=== PATIENT | female | born 1945 | race Caucasian/White ===

== ENCOUNTER 2016-07-10 16:06 | Outpatient (CLI) | payer OTHER, MEDICARE ==
[2016-07-10 16:33] LABS: eGFR (African) > 60; eGFR (Non-African) > 60
== END 2016-07-10 16:07 ==
LOC: LABRHC 16:06
PROVIDERS: ATTEND Family Medicine
DX: M15.9 Polyosteoarthritis, unspecified (principal); I10 Essential (primary) hypertension
CPT/HCPCS: 80053

== ENCOUNTER 2017-10-02 10:07 | Outpatient (CLI) | payer OTHER, MEDICARE ==
[2017-10-02 10:28] LABS: eGFR (African) > 60; eGFR (Non-African) > 60
== END 2017-10-02 12:19 ==
LOC: LABRHC 10:07
PROVIDERS: ATTEND Family Medicine
DX: I10 Essential (primary) hypertension (principal)
CPT/HCPCS: 36415; 80053; 80061